=== PATIENT | male | born 1950 | race Caucasian/White ===

== ENCOUNTER 2018-05-15 15:39 | Emergency (ER) | payer MEDICARE ==
[~2018-05-15] VITALS: Ht 154.9 cm; Wt 76.0 kg
[2018-05-15 15:43] VITALS: BP 100/65
== END 2018-05-15 18:10 | disposition home or self-care (01) ==
LOC: ED 18:00
DX: G62.9 Polyneuropathy, unspecified (principal); Z87.891 Personal history of nicotine dependence; I10 Essential (primary) hypertension; E11.9 Type 2 diabetes mellitus without complications
CPT/HCPCS: 99283